=== PATIENT | male | born 1945 | race Hispanic/Latino ===

== ENCOUNTER 2018-05-26 14:43 | Outpatient (CLI) | payer MEDICARE ==
--- NOTE | 2018-05-26 15:24 | XRay Report ---
XRAY LUMBAR SPINE THREE VIEWS: 05/26/18 14:43:00 CLINICAL: Bilateral leg pain FINDINGS: Mild dextroscoliosis centered at L2-3. Grade I L1-2 retrolisthesis. Mild narrowing of the disc space and anterior and posterior osteophytes at L1-S2. The alignment is otherwise normal. The rest of the disc spaces are normal. Facet joint sclerosis at L3-4, L4-5 and L5-S1. The pedicles are intact. No fracture. Calcification of the abdominal aorta. IMPRESSION: L1-S2 degenerative disc disease with mild L1-2 retrolisthesis. Lower lumbar facet joint arthropathy.
== END 2018-05-26 14:44 | disposition home or self-care (01) ==
LOC: SPVIMAG 14:43
PROVIDERS: ATTEND Surgery Vascular Surgery
DX: M51.37 Other intervertebral disc degeneration, lumbosacral region (principal); M48.07 Spinal stenosis, lumbosacral region; M43.16 Spondylolisthesis, lumbar region; I82.4Z1 Acute embolism and thrombosis of unspecified deep veins of right distal lower extremity; I87.2 Venous insufficiency (chronic) (peripheral)
CPT/HCPCS: 72100